=== PATIENT | male | born 1940 | race Two or more races ===

== ENCOUNTER 2020-01-03 16:27 | Inpatient (IN) | payer MEDICARE, BC ==
[~2020-01-03] VITALS: Ht 172.7 cm; Wt 86.2 kg
--- NOTE | 2020-01-03 11:28 | NUR ---
MS admit from ER BETO ANTONIO admitted to tele/MS after SBAR not received. Patient oriented to Emely Thao, RN primary RN, unit, room, bed, and unit policies regarding patient care and visiting hours. Patient weighed by bedscale and encouraged to call if they need something. Pt received from ER with BP of 152/90. Scheduled 2200 medications not given. No S/S of distress, SOB or pain at this time. Safety measures in place, bed in lowest position, bed rails raised x2, call light within reach. All questions and concerns addressed, patient verbalized understanding. Will continue to monitor PRN and q1h.
[2020-01-03] MEDS ORDERED: SODIUM CHLORIDE 0.9% 1,000 ML IV ONE (16:28)
[2020-01-03 18:13] LABS: Basophils # (auto) 0.1 10 ^3/uL (0-0.2); Basophils % (auto) 0.7 % (0.0-2.0); Eosinophils # (auto) 0.1 10 ^3/uL (0-0.8); Hemoglobin 14.5 g/dL (13.5-17.5); Lymphocytes # (auto) 1.5 10 ^3/uL (0.4-5.4); Lymphocytes % (auto) 15.5 % (10.0-50.0); Mean Corpuscular Hemoglobin 30.4 pg (28.0-32.0); Monocytes # (auto) 0.8 10 ^3/uL (0-1.3); Monocytes % (auto) 8.3 % (0.0-12.0); Neutrophils # (auto) 7.4 10 ^3/uL (1.6-8.6); Neutrophils % (auto) 74.5 % (37.0-80.0); Platelet Count (auto) 196 10^3/uL (140-450); Red Blood Cells 4.78 10^6/uL (4.5-5.90); Red Cell Distribution Width 13.2 % (11.8-14.3)
[2020-01-03 18:25] LABS: Chloride 108 mmol/L (98-107); Potassium 3.9 mmol/L (3.5-5.1); Sodium 137 mmol/L (136-145)
[2020-01-03 18:31] LABS: Alanine Aminotransferase 38 U/L (16-61); Albumin 3.4 g/dL (3.4-5.0); Alkaline Phosphatase 77 U/L (45-117); Anion Gap 6 (5-15); Aspartate Aminotransferase 31 U/L (15-37); BUN/Creatinine Ratio 16.8; Bilirubin, Total 0.3 mg/dL (0.2-1.0); Blood Urea Nitrogen 22 mg/dL (7-18); Calcium 8.5 mg/dL (8.5-10.1); Carbon Dioxide 23 mmol/L (21-32); GFR African American 68 mL/min; GFR Non-African American 56 mL/min; Glucose 147 mg/dL (74-106); Total Protein 8.1 g/dL (6.4-8.2)
[2020-01-03] MEDS ORDERED: ACETAMINOPHEN 325 MG TAB PO PRN (21:00)
[2020-01-03] MEDS ORDERED: ONDANSETRON HCL 4 MG/2 ML VIAL IV PRN (21:00)
[2020-01-03] MEDS ORDERED: NITROGLYCERIN 0.4 MG SL TAB SL PRN (21:00)
[2020-01-03] MEDS ORDERED: MORPHINE SULF INJ 2 MG/ML SYRINGE 1ML IV PRN (21:00)
[2020-01-03] MEDS ORDERED: TEMAZEPAM 15 MG CAP PO PRN (21:00)
[2020-01-03] MEDS ORDERED: AMLO5TAB15 PO (21:27)
[2020-01-03] MEDS ORDERED: GABA-339 PO (21:27)
[2020-01-03] MEDS ORDERED: COLE625T12 PO (21:27)
[2020-01-03] MEDS ORDERED: ASPI81CH43 PO (21:27)
[2020-01-03] MEDS ORDERED: AMIT50TA3 PO (21:27)
[2020-01-03] MEDS ORDERED: QUIN40TA PO (21:27)
[2020-01-03] MEDS: SODIUM CHLORIDE 0.9% 1,000 ML IV SCH (21:40)
[2020-01-03] MEDS ORDERED: GABAPENTIN 300 MG CAP PO SCH ×2 (22:00)
[2020-01-03] MEDS: [UNRECOGNIZED DRUG - OTHER] PO SCH (22:00)
[2020-01-03] MEDS ORDERED: AMITRIPTYLINE HCL 25 MG TAB PO SCH (22:00)
[2020-01-03] MEDS ORDERED: amLODIPine BESYLATE 5 MG TAB PO SCH (22:00)
[2020-01-03] MEDS ORDERED: FAMOTIDINE 20 MG TAB PO SCH (22:00)
[2020-01-04] VITALS: BP 152/90
--- NOTE | 2020-01-04 01:08 | NUR ---
Per patient and H&P, patient has hx of DM. No accu checks or sliding scale ordered. Will page hospitalist for orders.
[2020-01-04] MEDS ORDERED: DEXTROSE (50%) 50ML SYRG IV PRN (02:30)
[2020-01-04 05:00] VITALS: BP 131/87
[2020-01-04] MEDS ORDERED: GABAPENTIN 300 MG CAP PO SCH (06:00)
[2020-01-04 06:36] LABS: Basophils # (auto) 0.1 10 ^3/uL (0-0.2); Basophils % (auto) 0.8 % (0.0-2.0); Eosinophils # (auto) 0.1 10 ^3/uL (0-0.8); Eosinophils % (auto) 1.8 % (0.0-7.0); Hematocrit 42.4 % (41.0-53.0); Hemoglobin 14.7 g/dL (13.5-17.5); Lymphocytes # (auto) 2.9 10 ^3/uL (0.4-5.4); Lymphocytes % (auto) 39.4 % (10.0-50.0); Mean Corpuscular Hemoglobin 31.1 pg (28.0-32.0); Mean Corpuscular Hgb Conc. 34.7 g/dL (32.0-36.0); Mean Corpuscular Volume 89.4 fL (80.0-100.0); Monocytes # (auto) 0.5 10 ^3/uL (0-1.3); Monocytes % (auto) 6.9 % (0.0-12.0); Neutrophils # (auto) 3.7 10 ^3/uL (1.6-8.6); Neutrophils % (auto) 51.1 % (37.0-80.0); Nucleated Red Blood Cells % 0.1 %; Platelet Count (auto) 207 10^3/uL (140-450); Red Blood Cells 4.74 10^6/uL (4.5-5.90); Red Cell Distribution Width 13.3 % (11.8-14.3); White Blood Cell 7.3 10^3/uL (4.4-10.8)
[2020-01-04] MEDS: ACCU-CHEK COMFORT CURVE STRIP VI SCH ×2 (06:56→11:53)
[2020-01-04] MEDS: InsuLIN REG 1unit/0.01ml Soln (100units/ml) SC SCH ×2 (06:57→11:53)
[2020-01-04 06:58] LABS: Calcium 8.6 mg/dL (8.5-10.1); Potassium 4.2 mmol/L (3.5-5.1)
[2020-01-04 07:00] LABS: BUN/Creatinine Ratio 18.3
--- NOTE | 2020-01-04 08:58 | NUR ---
Opening Shift Note Assumed care of patient, awake and alert. No S/S of distress/SOB or pain. Instructed on POC and to call for assistance PRN bed is locked and in lowest position side rails up x2 , will continue to monitor for changes Q1hr and PRN.
[2020-01-04 09:00] VITALS: BP 131/87
[2020-01-04] MEDS: [UNRECOGNIZED DRUG - OTHER] PO SCH (09:32)
[2020-01-04] MEDS ORDERED: LISINOPRIL 20 MG TAB PO SCH (10:00)
[2020-01-04] MEDS ORDERED: ASPirin 81 mg TAB PO SCH (10:00)
[2020-01-04] MEDS: SODIUM CHLORIDE 0.9% 1,000 ML IV SCH (10:20)
[2020-01-04 12:28] VITALS: BP 131/87
[2020-01-04 13:00] VITALS: BP 146/84
[2020-01-04] MEDS ORDERED: OPTISON 3ml Vial for INJ IV ONE (15:35)
--- NOTE | 2020-01-04 16:45 | NUR ---
DISCHARGE HOME Discharge instructions given as ordered. Encourage to follow up with PMD as instructed. All questions and concerns addressed. Patient verbalized understanding. Medication reconciliation form completed and copy given to patient. IV removed with catheter intact, pressure dressing applied. Telemetry unit returned to ICU. Patient taken to [facility] via ambulation with all personal belongings, accompanied by staff. No distress noted at time of departure.
[2020-01-04 17:00] VITALS: BP 165/86
== END 2020-01-04 16:45 | disposition home or self-care (01) | DRG 314 ==
LOC: EDBD 16:27 → ER 16:27 → TELE 16:28 → TELE-CENTR 23:29
PROVIDERS: ADMIT Nurse Practitioner; ATTEND Internal Medicine
DX: I95.9 Hypotension, unspecified (principal); N17.0 Acute kidney failure with tubular necrosis; E86.0 Dehydration; R55 Syncope and collapse; E11.9 Type 2 diabetes mellitus without complications; I10 Essential (primary) hypertension; E78.5 Hyperlipidemia, unspecified; T67.5XXA Heat exhaustion, unspecified, initial encounter; Z90.49 Acquired absence of other specified parts of digestive tract
CPT/HCPCS: 36415; 70450; 71045; 80048; 80053; 82550; 82962; 84484; 85025; 93005; 93306; 96360; G0378; J1815; Q9956